=== PATIENT | female | born 1990 | race Caucasian/White ===

== ENCOUNTER 2025-03-29 03:08 | Outpatient (CLI) | payer BC, SELFPAY ==
--- NOTE | 2025-03-29 07:30 | DI.US_ITS ---
Exam(s) US NEEDLE LOCAL OTHER WO RAD EXAM: TR 4 lesion, 1.6 cm,thyroid nodule, ultrasound guided bx,e04.1 COMPARISON: No exams were available for comparison TECHNIQUE: Ultrasound performed using standard protocol. FINDINGS: Sonography was provided for Dr. Sellers during the performance of a thyroid nodule biopsies. Please refer to the procedure report for complete details. DATA REPOSITORY:
--- NOTE | 2025-03-29 11:20 | PAPNONF_PTH ---
PATIENT: Shanta Sanchez LOC: [facility] U#:[id number] AGE/SX: 34/F ROOM: RE03/29/[address]: Tony Sellers MD : 1990 BED: DIS: 03/29/2025 SPEC #: [id number] RECD: 03/29/25 12:54 STATUS: ROXANNE REQ #: [id number] RADHA: 03/29/25 11:[address]: Tony Sellers DEPT: [facility] Cytology RECD BY: Sherry More ENTERED: 03/29/25 12:55 SP TYPE: PHUONG JACOB DR: Jennifer Castillo Tissues: 1 - BODY FLUID CYTO-FINE NEEDLE ASPIRATE-[facility] 2 - BODY FLUID CYTO-FINE NEEDLE ASPIRATE-[facility] Procedures: BODY FLUID CYTO-FINE NEEDLE ASPIRATE-[facility] Comments: [id number] (PATH FNA CONSULT) (REFRIGERATED)
--- NOTE | 2025-03-29 12:46 | W.PROCNOTE ---
Date of service: 03/29/25 Time of Service: 12:46 Procedure Note Date of procedure: 03/29/25 Procedure: Ultrasound-guided FNA, thyroid nodules, left side x 2, pathology present Surgeon/Proceduralist/Physician: Tony Sellers Procedure Diagnosis: Thyroid nodules, left Procedure Indications: The patient has thyroid nodules on the left meeting criteria for biopsy. Options were explained to the patient regarding further management. She elected to undergo the above procedure. Consent was filled out and signed prior to the procedure. The below was then performed. The patient noted no change in her health since we saw her last. Procedure Description: The patient was positioned in a supine position with her neck slightly extended. Ultrasound was used to localize the thyroid nodules on the left after she had been prepped and draped in appropriate fashion. The lower and upper thyroid nodules were biopsied using ultrasound guidance and a 25-gauge needle. Cellular adequacy was verified on each by radiology and 2 additional passes were made into each nodule in case of further testing with [facility]ir[facility]. Following this, after ensuring adequate hemostasis, sterile dressing was applied to each entry site. The patient was then allowed to sit, stand, and ambulate. Her vital signs remained stable. She tolerated the procedure well. She will remove the bandages in a couple of hours and not replace them. She will call with any signs of infection or if she does not hear from me with regard to pathology results within 1 week. She may use ibuprofen or Tylenol for any discomfort. She will avoid any heavy lifting today. She had no further questions. She is comfortable with this plan. Her who accompanied her had no further questions and is comfortable with the plan.
== END 2025-03-29 03:28 ==
PROVIDERS: PCP Physician Assistant; Visit Provider Otolaryngology
DX: E04.1 Nontoxic single thyroid nodule (principal)
CPT/HCPCS: 10005; 76942; 88104